=== PATIENT | female | born 1955 | race Caucasian/White ===

== ENCOUNTER → 2020-05-31 | Outpatient (CLI) | payer BC, OTHER | LOC: HEART 5 14:20 | DX: R55 Syncope and collapse (principal) ==

== ENCOUNTER → 2020-11-17 | Outpatient (CLI) | payer BC, OTHER | LOC: EXRD 14:35 | DX: L40.50 Arthropathic psoriasis, unspecified (principal); M51.35 Other intervertebral disc degeneration, thoracolumbar region; M41.9 Scoliosis, unspecified | CPT/HCPCS: 72070; 72100 ==

== ENCOUNTER → 2021-03-21 | Outpatient (CLI) | payer BC | LOC: EXRD 15:14 | DX: R76.11 Nonspecific reaction to tuberculin skin test without active tuberculosis (principal); R91.8 Other nonspecific abnormal finding of lung field | CPT/HCPCS: 71046 ==